=== PATIENT | male | born 1980 | race American Indian/Alaskan Native ===

== ENCOUNTER 2019-12-11 18:26 | Emergency (ER) | payer SELFPAY ==
[2019-12-11] MEDS ORDERED: predniSONE 20 MG TAB PO ONE (20:07)
[2019-12-11] MEDS ORDERED: ONDANSETRON 4 MG ODT TAB PO ONE (20:07)
[2019-12-11] MEDS ORDERED: CYCLOBENZAPRINE 10 MG TAB PO ONE (20:07)
[2019-12-11] MEDS ORDERED: KETOROLAC 30 MG/1 ML INJ IM ONE (20:08)
--- NOTE | 2019-12-11 20:13 | Emergency Department Report ---
ED Back Pain/Injury HPI - General Chief Complaint: Back Pain/Injury Stated Complaint: EARS RINGING/BACK/NECK PAIN Source: patient Limitations: No Limitations - History of Present Illness Initial Comments: Patient is a 39-year-old -[place] male with history of chronic low back pain and chronic neck pain from lumbar disc and cervical disc disease and who presents to the ED with worsening neck and low back pain for the last 2 weeks after he ran out of his medication, Percocet 10 mg - 325 mg that he takes for his chronic pain. Patient also complains of bilateral tinnitus for the last 2 weeks despite using [id number] remedies. Patient denies headache, dizziness, nausea, vomiting, dizziness, cough, nasal and sinus congestion, sore throat, heavy lifting, fall, traumatic injury, hematuria, abdominal pain, chest pain, shortness of breath or numbness and tingling or weakness of upper and lower extremities bilaterally. MD Complaint: back pain (chronic pain), other (neck pain; bilateral tinnitus) -: Sudden, week(s) (2) Similar Symptoms Previously: Yes Place: home Radiation: none Severity: severe Severity scale (0 -10): 7 Quality: sharp, aching Consistency: constant Improves With: none Worsens With: movement, walking Associated Symptoms: denies other symptoms. denies: confusion, weakness, chest pain, difficulty walking, cough, difficulty urinating, diaphoresis, incontinence, constipation, headaches, abdominal pain, loss of appetite, malaise, nausea/vomiting, shortness of breath, syncope, other Treatments Prior to Arrival: NSAIDS - Related Data Previous Rx's Medication Instructions Recorded Last Taken Type Baclofen 20 mg PO Q8H PRN #24 tablet 12/11/19 Unknown Rx Naproxen 500 mg PO Q12H PRN #30 tablet 12/11/19 Unknown Rx Nortriptyline HCl 50 mg PO QHS PRN #30 capsule 12/11/19 Unknown Rx Prednisone [predniSONE 10 mg 10 mg PO .TAPER #21 tab.ds.pk 12/11/19 Unknown Rx (6-Day Pack, 21 Tabs)] Allergies Allergy/AdvReac Type Severity Reaction Status Date / Time No Known Allergies Allergy Unverified 12/11/19 18:33 ED Review of Systems ROS: Stated complaint: EARS RINGING/BACK/NECK PAIN Other details as noted in HPI Constitutional: denies: chills, fever Eyes: denies: eye pain, eye discharge, vision change ENT: ear pain (Bilateral tinnitus). denies: throat pain Respiratory: denies: cough, shortness of breath, wheezing Cardiovascular: denies: chest pain, palpitations Endocrine: no symptoms reported Gastrointestinal: denies: abdominal pain, nausea, diarrhea Genitourinary: denies: urgency, dysuria Musculoskeletal: back pain (lower), arthralgia (neck pain). denies: joint swelling Skin: denies: rash, lesions Neurological: denies: headache, weakness, paresthesias Psychiatric: denies: anxiety, depression Hematological/Lymphatic: denies: easy bleeding, easy bruising ED Past Medical Hx - Past Medical History Previous Medical History?: No - Surgical History Past Surgical History?: No - Social History Smoking Status: Current Every Day Smoker Substance Use Type: Marijuana - Medications Home Medications: Home Medications Medication Instructions Recorded Confirmed Last Taken Type Baclofen 20 mg PO Q8H PRN #24 tablet 12/11/19 Unknown Rx Naproxen 500 mg PO Q12H PRN #30 tablet 12/11/19 Unknown Rx Nortriptyline HCl 50 mg PO QHS PRN #30 capsule 12/11/19 Unknown Rx Prednisone [predniSONE 10 mg 10 mg PO .TAPER #21 tab.ds.pk 12/11/19 Unknown Rx (6-Day Pack, 21 Tabs)] ED Physical Exam - General Limitations: No Limitations General appearance: alert, in no apparent distress - Head Head exam: Present: atraumatic, normocephalic, normal inspection - Eye Eye exam: Present: normal appearance, PERRL, EOMI Pupils: Present: normal accommodation - ENT ENT exam: Present: normal exam, normal orophraynx, mucous membranes moist, TM's normal bilaterally, normal external ear exam - Neck Neck exam: Present: normal inspection, tenderness (Palpable cervical paraspinal musculoskeletal tenderness), full ROM. Absent: meningismus, lymphadenopathy, thyromegaly - Respiratory Respiratory exam: Present: normal lung sounds bilaterally. Absent: respiratory distress, wheezes, rales, rhonchi, chest wall tenderness, accessory muscle use, decreased breath sounds, prolonged expiratory - Cardiovascular Cardiovascular Exam: Present: normal rhythm, tachycardia, normal heart sounds. Absent: systolic murmur, diastolic murmur, rubs, gallop - GI/Abdominal GI/Abdominal exam: Present: soft, normal bowel sounds. Absent: tenderness, guarding, rebound, hyperactive bowel sounds, hypoactive bowel sounds, organomegaly - Extremities Exam Extremities exam: Present: normal inspection, full ROM, normal capillary refill - Back Exam Back exam: Present: normal inspection, full ROM. Absent: tenderness, CVA tenderness (R), CVA tenderness (L), muscle spasm - Neurological Exam Neurological exam: Present: alert, oriented X3, CN II-XII intact, normal gait, reflexes normal - Psychiatric Psychiatric exam: Present: normal affect, normal mood, anxious - Skin Skin exam: Present: warm, dry, intact, normal color. Absent: rash ED Course Vital Signs 12/11/19 12/11/19 18:31 20:36 Temperature 99.7 F H 98.1 F Pulse Rate 115 H 79 Respiratory 20 18 Rate Blood Pressure 122/74 105/66 O2 Sat by Pulse 96 94 Oximetry ED Medical Decision Making - Medical Decision Making This is a 39-year-old -[place] male with history of chronic low back pain and chronic neck pain from lumbar disc and cervical disc disease and who presents to the ED with worsening neck and low back pain for the last 2 weeks after he ran out of his medication, Percocet 10 mg - 325 mg that he takes for his chronic pain. Patient also complains of bilateral tinnitus for the last 2 weeks despite using [id number] remedies. In the ED, patient is alert and oriented x3 and is not in distress. Patient was treated for pain in the ED and was discharged home on pain medications and muscle relaxants. Patient was advised that chronic pain is not treated in the ED and was given a referral to the primary care physician at [facility] for evaluation and possible referral to a pain clinic. Patient was advised to return to the ED immediately if symptoms get worse. - Differential Diagnosis chronic pain; tinnitus; muscle spasm; cervical sprain Critical care attestation.: If time is entered above; I have spent that time in minutes in the direct care of this critically ill patient, excluding procedure time. ED Disposition Clinical Impression: Acute exacerbation of chronic low back pain, Chronic cervical pain, Cervical paraspinous muscle spasm, Bilateral tinnitus Disposition: - TO HOME OR SELFCARE Is pt being admited?: No Does the pt Need Aspirin: No Condition: Stable Instructions: Muscle Strain (ED), Cervical Sprain (ED), Chronic Back Pain (ED) Additional Instructions: Note that the ED does not treat chronic pain and therefore there is need for you to follow-up with your primary care physician in order for them to refer you to a pain clinic for the management of your chronic pain. Take medication with food, drink plenty of fluids and follow-up with your primary care physician in 5 to 7 days for reevaluation. Return to the ED immediately if symptoms get worse. Prescriptions: Nortriptyline HCl 50 mg PO QHS PRN #30 capsule PRN Reason: tinnitus Baclofen 20 mg PO Q8H PRN #24 tablet PRN Reason: Muscle Spasm Naproxen 500 mg PO Q12H PRN #30 tablet PRN Reason: Pain , Severe (7-10) Prednisone [predniSONE 10 mg (6-Day Pack, 21 Tabs)] 10 mg PO .TAPER #21 tab.ds.pk Referrals: [facility] [Provider Group] - 3-5 Days Time of Disposition: 20:16 Print Language: TELUGU
[2019-12-11 20:39] VITALS: BP 105/66
== END 2019-12-11 22:05 | disposition home or self-care (01) ==
LOC: ED 18:26
DX: M54.5 Low back pain (principal); G89.29 Other chronic pain; M54.2 Cervicalgia; M62.838 Other muscle spasm; H93.13 Tinnitus, bilateral; F17.200 Nicotine dependence, unspecified, uncomplicated; F12.10 Cannabis abuse, uncomplicated; Z79.899 Other long term (current) drug therapy
CPT/HCPCS: 96372; 99282; J1885; J7512; Q0162